=== PATIENT | female | born 1990 | race Caucasian/White ===

== ENCOUNTER 2018-01-22 16:47 | Emergency (ER) | payer SELFPAY ==
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
[2018-01-22] MEDS ORDERED: ONDANSETRON 4 MG/2 ML VIAL IVP ONE (17:30)
[2018-01-22 17:47] LABS: PLATELET COUNT, AUTOMATED 318 K/uL (150-450)
[2018-01-23 03:03] VITALS: BP 104/64
== END 2018-01-23 03:06 | disposition home or self-care (01) ==
LOC: EDBD 17:02 → ER 17:02
DX: F10.920 Alcohol use, unspecified with intoxication, uncomplicated (principal)
CPT/HCPCS: 80305; 80320; 81001; 83690; 84703; 85025; 96374; 99001; 99283; J2405; 82310; 82374; 82435; 82565; 82947; 84132; 84295; 84520

== ENCOUNTER → 2018-01-22 | Outpatient (CLI) | payer SELFPAY | LOC: AMB 16:34 | PROVIDERS: ATTEND Nurse Practitioner | DX: R41.0 Disorientation, unspecified (principal); R53.83 Other fatigue; V58.0XXA Driver of pick-up truck or van injured in noncollision transport accident in nontraffic accident, initial encounter; Y92.414 Local residential or business street as the place of occurrence of the external cause | CPT/HCPCS: A0425; A0429 ==